=== PATIENT | male | born 1975 | race Hispanic/Latino ===

== ENCOUNTER → 2018-10-10 | Outpatient (CLI) | payer OTHER ==
--- NOTE | 2018-10-10 13:49 | Diagnostic Imaging Report ---
MRI of the right shoulder without contrast. History: Shoulder pain. Trauma. Decreased range of motion. Pain not responding to conservative management. Comparison: None Technique: Coronal PD FS, sagital PD FS, and axial PD and PD FS. Findings: Rotator cuff: There is mild rotator cuff tendinosis without tear, muscle atrophy or retraction. Osseous acromion complex: Type II acromion with mild lateral downsloping. Mild degenerative arthrosis at the acromioclavicular joint with undersurface spurring and mild narrowing of the supraspinatus tendon outlet. Glenohumeral joint: Degeneration and fraying of the labrum or the articular cartilage surfaces are intact. The humeral head is well-seated in the glenoid fossa. Biceps tendon: The biceps tendon is intact Other findings: High-grade tearing of the pectoralis musculature with adjacent soft tissue edema and likely evolving hematoma. This is best seen on series 3 image 1 through 5, series 2 image 20 through 30 and series 5 image 7 through 14. Dedicated MRI of the anterior chest/pectoralis musculature. May provide further information. Impression: High-grade tearing of the pectoralis musculature with adjacent soft tissue edema and likely evolving hematoma. Dedicated MRI of the anterior chest/pectoralis musculature. May provide further information. Mild rotator cuff tendinosis without tear, muscle atrophy or retraction. Mild degenerative arthrosis at the acromioclavicular joint. Signed by: Dr. Jared Gonzalez M.D. on 10/10/2018 1:38 PM
== END ==
LOC: MRI 10:10
PROVIDERS: ATTEND Family Medicine
DX: S43.401A Unspecified sprain of right shoulder joint, initial encounter (principal)